=== PATIENT | male | born 1950 | race Caucasian/White ===

== ENCOUNTER → 2018-05-17 | Outpatient (CLI) | payer BC ==
--- NOTE | 2018-05-17 16:33 | CONS ---
CONSULTATION REASON FOR CONSULTATION: Consultation note for sleep apnea. 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 Apparently he quits breathing as reported by his . He snores. Never the less, he is not having major excessive fatigue or sleepiness during the day. He is able to drive his car without having to fall asleep. He is able to concentrate during the day and he is able to perform day-to-day activities without any major difficulties. He goes to bed around 11 p.m., wakes up 7:30 am in the morning and he feels rather refreshed. He has undergone a sleep study many years back. However, he was unable to fall asleep at the [facility] and as the patient has some degree of anxiety and on and off he has required Ambien for sleep induction. Sometimes he takes more than 30 minutes to fall asleep and he gets up and he cannot fall asleep and he takes an Ambien for sleep induction at dose of 5 mg. No choking or gasping sensation at nighttime. No nocturia. No grinding of the teeth. No dry mouth. He has chronic anxiety. No panic attack or heartburn. No recent weight gain or weight loss. PAST MEDICAL HISTORY: Diabetes and hyperlipidemia. PAST SURGICAL HISTORY: Knee arthroscopic surgery. DRUG ALLERGIES: Not known. OUTPATIENT MEDICATION: Include Januvia 100, lisinopril 10 mg p.o. daily, metformin 850 1 tablet twice a day. Symbicort as needed. 300/3 units daily and Ambien 5 mg as needed. SOCIAL HISTORY: The patient is a nonsmoker. No history of alcoholism. No history of IV drugs. FAMILY HISTORY: Negative for sleep apnea. REVIEW OF SYSTEMS: 12-point review of system was done. The positive findings are mentioned above in the history of present illness. No sleepwalking. No sleep talking. No sleep paralysis. No hallucinations. No cataplexy. No nocturnal chest pain. No heartburn. No swelling in lower extremities. No claustrophobia, chronic anxiety and has not been able to undergo a polysomnogram in the sleep center in the past. PHYSICAL EXAMINATION: BP is 124/67, pulse 65, respirations 16, temperature 97.6, saturation 94% on room air. Weight is 214, height 5 feet 5 inches, Long[place] score 14. Neck size 17 inches and BMI 35. GENERAL APPEARANCE: Calm, comfortable. Head is atraumatic, normocephalic. Neck is short, supple, Mallampati class 3. No goiter or neck masses. LUNGS: Clear to auscultation. HEART: Sounds are regular. Normal S1, S2. No S3. No murmurs. ABDOMEN: Soft and nontender. EXTREMITIES: No edema. No cyanosis or clubbing. IMPRESSION: 1. Obstructive sleep apnea suspected, based on history of snoring and witnessed apneas. 2. Obesity BMI of 35. 3. Sleepiness Longmont score of 14. 4. Diabetes. 5. Hypertension. 6. Chronic anxiety. PLAN: 1. Encourage weight loss. 2. Home sleep study for sleep apnea evaluation. 3. Will follow the patient. MMDOMINIQUEL / SONN: [id number] /
== END | disposition home or self-care (01) ==
LOC: SLEEP 13:43
PROVIDERS: ATTEND Internal Medicine Critical Care Medicine
DX: G47.33 Obstructive sleep apnea (adult) (pediatric) (principal); E11.9 Type 2 diabetes mellitus without complications; I10 Essential (primary) hypertension; F41.9 Anxiety disorder, unspecified; E78.5 Hyperlipidemia, unspecified; E66.9 Obesity, unspecified; Z68.35 Body mass index [BMI] 35.0-35.9, adult; Z98.890 Other specified postprocedural states; Z79.899 Other long term (current) drug therapy; Z79.84 Long term (current) use of oral hypoglycemic drugs
CPT/HCPCS: 99211

== ENCOUNTER → 2018-07-26 | Outpatient (CLI) | payer BC ==
--- NOTE | 2018-07-26 14:55 | PN ---
PROGRESS NOTE Gabriel dozier 67 was diagnosed having obstructive sleep apnea with an AHI of 27. The patient was supposed to come in for a compliancy check knowing that he was given an APAP. Note that the patient got the machine and he started using it and within 10 days into the treatment he was given a call from the DME stating that the treatment was not working out, probably related to some emergence of central events. Based on that, the patient quit taking the treatment, he has not used his CPAP since then. I had an opportunity to look at the compliance data that was gathered over the past 39 days. The patient has used his machine and only 7 days where he achieved more than 4 hours. Average usage is around 4.5 hours per night and AHI is down to 14 with the central apnea index of 10. As such, the patient probably has some emergent central apneas and he may be a complex case. [id number], these may be transient central events that may ultimately recover and resolve with time. I think the overall duration of treatment is short enough to make final judgment whether this was a failed treatment. His [place] score is 14 and patient continues to be symptomatic with obstructive sleep apnea. He does not have any coronary artery disease. Does have any stroke, does not have any atrial fibrillation or congestive heart failure. He is known to have diabetes and hypertension and chronic anxiety. Temperature 97.1, pulse 88, respirations 16, BP 141/72, saturation 95% on room air. Weight is 16. GENERAL APPEARANCE: Calm, comfortable. Head is atraumatic, normocephalic. Neck is supple. There is no JVD. No goiter or neck masses. Mallampati class 4. Lungs clear to auscultation. Heart sounds are regular rate and rhythm. Normal S1, S2. No S3. No murmurs. Abdomen is soft, nontender. EXTREMITIES: No edema. No cyanosis or clubbing. NEUROLOGIC: Alert and oriented x3. No focal neurological deficits. PSYCHIATRIC: Negative for appropriate mood and affect. Negative for any acute depression. SKIN: Negative for any wounds or ulceration. IMPRESSION: 1. Obstructive sleep apnea moderate in severity. Apnea-hypopnea index of 27. The patient was given an APAP and the patient started having central apnea emergence and he may be a case of complex ROSEY having treatment emergent central events. 2. Mild nocturnal oxygen desaturation secondary to obstructive sleep apnea. 3. Hypersomnia, [place] score of 14. 4. Obesity, body mass index of 35. 5. Diabetes. 6. Hypertension. PLAN: This patient does not have any congestive heart failure, atrial fibrillation, no history of stroke. He does not have any underlying neurologic deficits. He does not take any opiates. As such, this may be transient central events that may ultimately recovered. As such, would need a longer duration of CPAP therapy to decide whether this was a treatment failure. I asked the patient to go back on his CPAP machine for another 60 days and come in for another compliancy check. Encouraged weight loss. Implement good sleep hygiene measures. Will continue to follow. MMDOMINIQUEL / IJN: [id number] /
== END | disposition home or self-care (01) ==
LOC: SLEEP 13:55
PROVIDERS: ATTEND Internal Medicine Critical Care Medicine
DX: G47.33 Obstructive sleep apnea (adult) (pediatric) (principal); E66.9 Obesity, unspecified; E11.9 Type 2 diabetes mellitus without complications; I10 Essential (primary) hypertension; Z68.35 Body mass index [BMI] 35.0-35.9, adult

== ENCOUNTER → 2018-10-18 | Outpatient (CLI) | payer BC ==
--- NOTE | 2018-10-18 15:54 | PN ---
PROGRESS NOTE Gabriel is 67. He is coming in for further advice regarding his ROSEY treatment. The patient was diagnosed having sleep apnea predominantly obstructive with some mild central events with an AHI of 27 based on an original home sleep study. Following that, the patient was given an APAP. He never got to the point where he has using APAP on a regular basis. He uses for around a week or so initially and subsequently he quit the treatment. He did not see any benefit while being on treatment. Since his last evaluation back in July of 2018, he has not used his APAP machine. I am not sure if he is willing to undertake the treatment. I checked the machine itself and there was no new data accumulated or gathered within the machine. I noted that the patient was still having central events even while on treatment. Upon further questioning, the patient has not had any history of stroke. No history of any narcotic intake. No history of any CHF, cardiomyopathy, atrial fibrillation, or any other cardiovascular complications. He is trying to lose weight. However his weight has remained stable. In fact, he has gained only a few pounds since his last evaluation. He does not have any significant sleepiness during the day. His Griffith score remains low at 6. BP is 141/79, pulse 72, respirations 17, temperature 97.9 saturation 95% on room air. Weight is 220. Height is 5 feet 2 inches, BMI 36. Griffith score of 6. GENERAL APPEARANCE: Calm and comfortable. HEENT: Head is atraumatic, normocephalic. NECK: Neck is short, supple neck. Crowding of posterior pharynx is present. There is no goiter or neck masses. LUNGS: Diminished breath sounds. Otherwise clear. Heart sounds are regular rate and rhythm. Normal S1, S2. No S3, S4. No murmurs. ABDOMEN is soft, nontender. No organomegaly. EXTREMITIES: No edema. No cyanosis or clubbing. IMPRESSION: 1. Obstructive sleep apnea AHI of 27, treated with APAP with subsequent emergence of central apneas and subsequent failure to demonstrate adequate compliance. The patient for now is declining the treatment. 2. Hypersomnia improved Griffith score is down to 6. 3. Obesity BMI of 35. 4. Diabetes. 5. Hypertension. PLAN: 1. We will discontinue the treatment. 2. Encourage weight loss. 3. Would ask the patient to undergo a reevaluation with another in a year's time to readdress the presence of obstructive versus central sleep apnea and decide if treatment will be of any value. For now he is declining the treatment. MMODL / IJN: [id number] /
== END ==
LOC: SLEEP 14:34
PROVIDERS: ATTEND Internal Medicine Critical Care Medicine
DX: G47.33 Obstructive sleep apnea (adult) (pediatric) (principal); E66.9 Obesity, unspecified; E11.9 Type 2 diabetes mellitus without complications; I10 Essential (primary) hypertension; Z99.89 Dependence on other enabling machines and devices; Z68.35 Body mass index [BMI] 35.0-35.9, adult

== ENCOUNTER → 2019-09-08 | Outpatient (CLI) | payer MEDICARE, BC ==
--- NOTE | 2019-09-13 08:43 | P.ARTDOP ---
Arterial Doppler LOWER EXTREMITY ARTERIAL DOPPLER: DATE OF SERVICE: 09/08/2019 Reason for study: Bilateral leg pain. Doppler waveforms: Multiphasic bilaterally throughout.. Pulse volume recording: []. Pressure gradients: Mild gradient across the knee on the right and below the knee on the left. Ankle-brachial indices: 0.78 bilaterally. Toe pressures: 83 on the right, 76 on the left Impression: Mild bilateral fem-pop disease..
== END | disposition home or self-care (01) ==
LOC: RADUSWWP 15:27
PROVIDERS: ATTEND Family Medicine
DX: I73.9 Peripheral vascular disease, unspecified (principal)
CPT/HCPCS: 93923

== ENCOUNTER 2023-02-21 10:50 | Emergency (ER) | payer MEDICARE, BC ==
[2023-02-21 10:58] VITALS: RESP 18
--- NOTE | 2023-02-21 11:51 | ED ---
General Adult HPI - General Chief complaint: Shortness of Breath Stated complaint: rt leg pain Time Seen by Provider: 02/21/23 11:27 Source: patient, RN notes reviewed, old records reviewed Mode of arrival: ambulatory Limitations: no limitations - History of Present Illness Initial comments: 72-year-old male presents for evaluation of right leg pain. Patient has had symptoms for the past several years according to both the patient and his . They have been worsening. Patient states that he develops worsening symptoms with ambulation bilaterally in the right leg. He has a previous history of tobacco use but quit about 20 years ago. He denies known vascular disease. Denies chest pain. Denies fever. He does report mild dyspnea which she states is quite mild. No cough. No fever. - Related Data Home Medications Medication Instructions Recorded Confirmed Insulin Detemir [Levemir Flextouch 17 units SQ PC-SUPPER 09/30/15 06/24/16 Pen] Pioglitazone HCl/Metformin HCl 1 tab PO BID 09/30/15 06/24/16 [Actoplus Met 15 mg-850 mg Tab] Rosuvastatin Calcium [Crestor] 20 mg PO HS 09/30/15 06/24/16 Zolpidem [Ambien] 10 mg PO HS PRN 09/30/15 06/24/16 lisinopriL [Zestril] 10 mg PO DAILY 09/30/15 06/24/16 sitaGLIPtin [Januvia] 100 mg PO DAILY 06/22/16 06/24/16 Allergies Allergy/AdvReac Type Severity Reaction Status Date / Time No Known Allergies Allergy Verified 02/21/23 10:57 Review of Systems ROS Statement: Those systems with pertinent positive or pertinent negative responses have been documented in the HPI. ROS Other: All systems not noted in ROS Statement are negative. Past Medical History Past Medical History: COPD, Diabetes Mellitus, Hyperlipidemia, Hypertension Additional Past Medical History / Comment(s): SPOUSE STATES TRIED TO USE CPAP BUT WAS UNABLE TO, COULD NOT DO THE TESTING History of Any Multi-Drug Resistant Organisms: None Reported Past Surgical History: Orthopedic Surgery Additional Past Surgical History / Comment(s): RT KNEE SX. COLONOSCOPY Past Anesthesia/Blood Transfusion Reactions: No Reported Reaction Past Psychological History: Anxiety Smoking Status: Former smoker Past Alcohol Use History: None Reported Past Drug Use History: None Reported - Past Family History Sister(s) Family Medical History: Cancer Father Family Medical History: Cancer Mother Family Medical History: Cancer General Exam Limitations: no limitations General appearance: alert, in no apparent distress Head exam: Present: atraumatic, normocephalic Eye exam: Present: normal appearance, PERRL ENT exam: Present: normal exam Neck exam: Present: normal inspection. Absent: tenderness, meningismus Respiratory exam: Present: normal lung sounds bilaterally. Absent: respiratory distress, wheezes, rales, rhonchi Cardiovascular Exam: Present: regular rate, normal rhythm GI/Abdominal exam: Present: soft. Absent: distended, tenderness Extremities exam: Present: normal inspection, normal capillary refill, other (Right leg: DP and PT pulses 2+). Absent: pedal edema, calf tenderness Neurological exam: Present: alert, oriented X3, CN II-XII intact. Absent: motor sensory deficit Psychiatric exam: Present: normal affect, normal mood Course Vital Signs 02/21/23 10:51 Temperature 98.9 F Pulse Rate 98 Respiratory 18 Rate Blood Pressure 155/72 O2 Sat by Pulse 98 Oximetry EKG Findings - EKG Comments: EKG Findings:: EKG: Sinus rhythm rate of 80, NM interval 159, QRS duration 75, QTC 400, no ST segment elevation. Medical Decision Making - Medical Decision Making Was pt. sent in by a medical professional or institution ([facility], [employer]T [employer], urgent care, hospital, or snf...) When possible be specific @ -No Did you speak to anyone other than the patient for history (EMS, parent, family, police, friend...)? What history was obtained from this source @ Patient's was at bedside Did you review nursing and triage notes (agree or disagree)? Why? @ -I reviewed and agree with nursing and triage notes Were old charts reviewed (outside hosp., previous admission, EMS record, old EKG, old radiological studies, urgent care reports/EKG's, snf records)? Report findings @ -No old charts were reviewed Differential Diagnosis (chest pain, altered mental status, abdominal pain women, abdominal pain men, vaginal bleeding, weakness, fever, dyspnea, syncope, headache, dizziness, GI bleed, back pain, seizure, CVA, palpatations, mental health, musculoskeletal)? @ -not applicable EKG interpreted by me (3pts min.). @ -As above X-rays interpreted by me (1pt min.). @ Reviewed and interpreted by myself, no acute findings CT interpreted by me (1pt min.). @ -None done U/S interpreted by me (1pt. min.). @ Reviewed and interpreted by myself, no DVT What testing was considered but not performed or refused? (CT, X-rays, U/S, labs)? Why? @ -None What meds were considered but not given or refused? Why? @ -None Did you discuss the management of the patient with other professionals (professionals i.e. , PA, BELT FIXER, lab, RT, psych nurse, social work faculty member, ross carrier driver, teacher, chief clinical officer, rifle case repairer)? Give summary @ -No Was smoking cessation discussed for >3mins.? @ -No Was critical care preformed (if so, how long)? @ -No Were there social determinants of health that impacted care today? How? (Homelessness, low income, unemployed, alcoholism, drug addiction, transportation, low edu. Level, literacy, decrease access to med. care, detention, rehab)? @ -No Was there de-escalation of care discussed even if they declined (Discuss DNR or withdrawal of care, Hospice)? DNR status @ -No What co-morbidities impacted this encounter? (DM, HTN, Smoking, COPD, CAD, Canc er, CVA, ARF, Chemo, Hep., AIDS, mental health diagnosis, sleep apnea, morbid obesity)? @ COPD Was patient admitted / discharged? Hospital course, mention meds given and route, prescriptions, significant lab abnormalities, going to OR and other pertinent info. @ 72-year-old male presenting with chronic right leg pain. Patient's history does suggest claudication symptoms. He has palpable DP and PT pulses. The extremity is warm. Ultrasound is negative for DVT. There was a complaint of minor dyspnea and workup for this is unremarkable including CBC, CMP, troponin, BNP, and chest x-ray. Lungs are clear and there is no respiratory distress. Given the progression of symptoms I do recommend the patient follow up with vascular surgery for evaluation. Undiagnosed new problem with uncertain prognosis? @ -No Drug Therapy requiring intensive monitoring for toxicity (Heparin, Nitro, Insulin, Cardizem)? @ -No Were any procedures done? @ -No Diagnosis/symptom? @ Leg pain Acute, or Chronic, or Acute on Chronic? @ Chronic Uncomplicated (without systemic symptoms) or Complicated (systemic symptoms)? @ Complicated Side effects of treatment? @ -No Exacerbation, Progression, or Severe Exacerbation? @ -No Poses a threat to life or bodily function? How? (Chest pain, [place], [place], pneumonia, PE, COPD, DKA, ARF, appy, cholecystitis, CVA, Diverticulitis, Homicidal, Suicidal, threat to staff... and all critical care pts) @ -No - Lab Data Result diagrams: 02/21/23 11:48 02/21/23 11:48 Lab Results 02/21/23 02/21/23 02/21/23 Range/Units 11:48 11:48 11:48 WBC 7.5 (3.8-10.6) k/uL RBC 4.21 L (4.30-5.90) m/uL Hgb 12.5 L (13.0-17.5) gm/dL Hct 39.0 (39.0-53.0) % MCV 92.6 (80.0-100.0) fL MCH 29.8 (25.0-35.0) pg MCHC 32.2 (31.0-37.0) g/dL RDW 13.3 (11.5-15.5) % Plt Count 239 (150-450) k/uL MPV 8.8 Neutrophils % 71 % Lymphocytes % 19 % Monocytes % 6 % Eosinophils % 1 % Basophils % 1 % Neutrophils # 5.3 (1.3-7.7) k/uL Lymphocytes # 1.4 (1.0-4.8) k/uL Monocytes # 0.5 (0-1.0) k/uL Eosinophils # 0.1 (0-0.7) k/uL Basophils # 0.0 (0-0.2) k/uL PT 10.1 (9.0-12.0) sec INR 1.0 (<1.2) APTT 25.7 (22.0-30.0) sec Sodium 142 (137-145) mmol/L Potassium 4.6 (3.5-5.1) mmol/L Chloride 104 (98-107) mmol/L Carbon Dioxide 28 (22-30) mmol/L Anion Gap 10 mmol/L BUN 12 (9-20) mg/dL Creatinine 1.03 (0.66-1.25) mg/dL Est GFR (CKD-EPI)AfAm 85 (>60 ml/min/1.73 sqM) Est GFR (CKD-EPI)NonAf 74 (>60 ml/min/1.73 sqM) Glucose 123 H (74-99) mg/dL Calcium 9.7 (8.4-10.2) mg/dL Magnesium 1.9 (1.6-2.3) mg/dL Total Bilirubin 1.7 H (0.2-1.3) mg/dL AST 29 (17-59) U/L ALT 21 (4-49) U/L Alkaline Phosphatase 56 (38-126) U/L Troponin I (0.000-0.034) ng/mL NT-Pro-B Natriuret Pep pg/mL Total Protein 8.3 H (6.3-8.2) g/dL Albumin 4.7 (3.5-5.0) g/dL 02/21/23 02/21/23 Range/Units 11:48 11:48 WBC (3.8-10.6) k/uL RBC (4.30-5.90) m/uL Hgb (13.0-17.5) gm/dL Hct (39.0-53.0) % MCV (80.0-100.0) fL MCH (25.0-35.0) pg MCHC (31.0-37.0) g/dL RDW (11.5-15.5) % Plt Count (150-450) k/uL MPV Neutrophils % % Lymphocytes % % Monocytes % % Eosinophils % % Basophils % % Neutrophils # (1.3-7.7) k/uL Lymphocytes # (1.0-4.8) k/uL Monocytes # (0-1.0) k/uL Eosinophils # (0-0.7) k/uL Basophils # (0-0.2) k/uL PT (9.0-12.0) sec INR (<1.2) APTT (22.0-30.0) sec Sodium (137-145) mmol/L Potassium (3.5-5.1) mmol/L Chloride (98-107) mmol/L Carbon Dioxide (22-30) mmol/L Anion Gap mmol/L BUN (9-20) mg/dL Creatinine (0.66-1.25) mg/dL Est GFR (CKD-EPI)AfAm (>60 ml/min/1.73 sqM) Est GFR (CKD-EPI)NonAf (>60 ml/min/1.73 sqM) Glucose (74-99) mg/dL Calcium (8.4-10.2) mg/dL Magnesium (1.6-2.3) mg/dL Total Bilirubin (0.2-1.3) mg/dL AST (17-59) U/L ALT (4-49) U/L Alkaline Phosphatase (38-126) U/L Troponin I <0.012 (0.000-0.034) ng/mL NT-Pro-B Natriuret Pep 182 pg/mL Total Protein (6.3-8.2) g/dL Albumin (3.5-5.0) g/dL Disposition Clinical Impression: Leg pain Disposition: HOME SELF-CARE Condition: Good Instructions (If sedation given, give patient instructions): Leg Pain (ED) Is patient prescribed a controlled substance at d/c from ED?: No Referrals: Med Shetty MD [Primary Care Provider] - 1-2 days Ag Carty DO [Doctor of Osteopathic Medicine] - 1-2 days Time of Disposition: 14:48
[2023-02-21 12:13] LABS: Albumin 4.7 g/dL (3.5-5.0); Calcium 9.7 mg/dL (8.4-10.2); Magnesium 1.9 mg/dL (1.6-2.3); Potassium 4.6 mmol/L (3.5-5.1); Total Bilirubin 1.7 mg/dL (0.2-1.3); Total Protein 8.3 g/dL (6.3-8.2)
[2023-02-21 12:57] LABS: Basophils % (A) 1 %; Eosinophils # (A) 0.1 k/uL (0-0.7); Eosinophils % (A) 1 %; HGB 12.5 gm/dL (13.0-17.5); Lymphocytes # (A) 1.4 k/uL (1.0-4.8); Lymphocytes % (A) 19 %; MCH 29.8 pg (25.0-35.0); MCHC 32.2 g/dL (31.0-37.0); MCV 92.6 fL (80.0-100.0); Mean Platelet Volume 8.8; Monocytes # (A) 0.5 k/uL (0-1.0); Monocytes % (A) 6 %; Neutrophils # (A) 5.3 k/uL (1.3-7.7); Neutrophils % (A) 71 %; Platelet Count 239 k/uL (150-450); RBC 4.21 m/uL (4.30-5.90); RDW 13.3 % (11.5-15.5); WBC 7.5 k/uL (3.8-10.6)
[2023-02-21 13:08] LABS: Partial Thromboplastin Time 25.7 sec (22.0-30.0); Prothrombin Time 10.1 sec (9.0-12.0)
--- NOTE | 2023-02-21 13:18 | XR ---
EXAMINATION TYPE: XR chest 2V DATE OF EXAM: 02/21/2023 COMPARISON: None INDICATION: Right leg swelling TECHNIQUE: Frontal and lateral views of the chest are obtained. FINDINGS: The heart size is normal. The pulmonary vasculature is normal. The lungs are clear. IMPRESSION: 1. No acute pulmonary process.
--- NOTE | 2023-02-21 14:39 | US ---
EXAMINATION TYPE: US venous doppler duplex LE RT DATE OF EXAM: 02/21/2023 11:46 AM COMPARISON: NONE CLINICAL INDICATION: Male, 72 years old with history of pain/swelling; SIDE PERFORMED: Right TECHNIQUE: The lower extremity deep venous system is examined utilizing real time linear array sonog britney with graded compression, doppler sonography and color-flow sonography. VESSELS IMAGED: Common Femoral Vein Deep Femoral Vein Greater Saphenous Vein * Femoral Vein Popliteal Vein Small Saphenous Vein * Proximal Calf Veins (* superficial vessels) Right Leg: Negative for DVT IMPRESSION: 1. Right lower extremity ultrasound negative for deep venous thrombosis.
[2023-02-21 15:19] VITALS: BP 140/82; PULSE 80; TEMP 97.9
== END 2023-02-21 15:19 | disposition home or self-care (01) ==
LOC: EC 10:50
DX: M79.604 Pain in right leg (principal); R06.02 Shortness of breath; J44.9 Chronic obstructive pulmonary disease, unspecified; E11.9 Type 2 diabetes mellitus without complications; I10 Essential (primary) hypertension; E78.5 Hyperlipidemia, unspecified; Z79.4 Long term (current) use of insulin; Z79.899 Other long term (current) drug therapy; Z79.84 Long term (current) use of oral hypoglycemic drugs; Z79.891 Long term (current) use of opiate analgesic
CPT/HCPCS: 36415; 71046; 80053; 83735; 83880; 84484; 85025; 85610; 85730; 93005; 99285

== ENCOUNTER 2023-06-29 10:09 | Day surgery (SDC) | payer MEDICARE, BC ==
[~2023-06-29 10:09] MED LIST: ALPRAZolam 0.25 MG TAB PO PRN; ALPRAZolam 0.5 MG TAB PO PRN; ASPIRIN 325 MG TAB PO STA; ATORVASTATIN 80 MG TAB PO STA; HEPARIN SODIUM,PORCINE (1 ML) 2,500 UNIT in SODIUM CHLORIDE 0.9% 250 ML IRRIGATION PRN; HEPARIN SODIUM,PORCINE 10,000 UNIT in SODIUM CHLORIDE 0.9% 1,000 ML IRRIGATION PRN; NITROGLYCERIN SL TABS 0.4 MG TAB SUBLINGUAL PRN
[2023-06-29 10:57] LABS: Glucose,Whole Blood 141 mg/dL (70-110)
[2023-06-29] MEDS ORDERED: SODIUM CHLORIDE 0.9% 1,000 ML IV ONE (10:57)
[2023-06-29] MEDS ORDERED: lisinopriL 10 MG TAB PO STA (11:04)
[2023-06-29 11:14] LABS: Basophils % (A) 0 %; Eosinophils # (A) 0.1 k/uL (0-0.7); Eosinophils % (A) 1 %; HCT 38.8 % (39.0-53.0); HGB 12.4 gm/dL (13.0-17.5); Lymphocytes # (A) 1.6 k/uL (1.0-4.8); Lymphocytes % (A) 18 %; MCH 30.6 pg (25.0-35.0); MCV 95.7 fL (80.0-100.0); Monocytes # (A) 0.5 k/uL (0-1.0); Monocytes % (A) 6 %; Neutrophils # (A) 6.3 k/uL (1.3-7.7); Neutrophils % (A) 73 %; Platelet Count 238 k/uL (150-450); RBC 4.06 m/uL (4.30-5.90); RDW 14.7 % (11.5-15.5); WBC 8.5 k/uL (3.8-10.6)
[2023-06-29] MEDS ORDERED: VERAPAMIL 2.5 MG/ML 2 ML AMP ONE (11:59)
[2023-06-29 12:08] LABS: African American GFR (CKD) >90 (>60 ml/min/1.73 sqM); Anion Gap 6 mmol/L; Blood Urea Nitrogen 15 mg/dL (9-20); Calcium 9.3 mg/dL (8.4-10.2); Carbon Dioxide 24 mmol/L (22-30); Chloride 108 mmol/L (98-107); Glucose 143 mg/dL (74-99); Non-African American GFR(CKD) 84 (>60 ml/min/1.73 sqM); Potassium 4.6 mmol/L (3.5-5.1); Sodium 138 mmol/L (137-145)
[2023-06-29] MEDS ORDERED: HEPARIN SODIUM 1,000 UN/ML (10ML VL) ONE (12:30)
[2023-06-29] MEDS ORDERED: MIDAZOLAM 2 MG/2 ML VIAL IVP ONE (12:39)
[2023-06-29] MEDS ORDERED: LIDOCAINE 2% (PF) 20 MG/ML 5 ML VIAL SQ ONE (12:40)
[2023-06-29] MEDS ORDERED: VERAPAMIL SYRINGE (5 MG/10 ML) INTRAARTER ONE (12:41)
[2023-06-29] MEDS ORDERED: fentaNYL (PF) 50 MCG/ML 2 ML AMP ONE (12:59)
[2023-06-29] MEDS ORDERED: fentaNYL (PF) 50 MCG/ML 2 ML AMP IVP ONE (13:02)
[2023-06-29] MEDS ORDERED: LIDOCAINE 1% INJ 10MG/ML (20 ML MDV) ONE (13:06)
[2023-06-29] MEDS ORDERED: RX INFO: IV CONTRAST WAS GIVEN 1 EACH MISC MISCELLANE PRN (13:22)
--- NOTE | 2023-06-29 13:26 | P.PCN ---
Date of Procedure: 06/29/23 Operative Findings: CARDIAC CATHETERIZATION PERFORMING PHYSICIAN: Jeferson Villavicencio MD, RPVI PROCEDURE PERFORMED: 1. Selective right and left coronary angiogram 2. Left heart catheterization 3. Selective right common femoral artery and right radial angiogram 4. Ultrasound-guided access of the right radial artery INDICATION: Chest discomfort and abnormal myocardial perfusion imaging stress test COMPLICATION: None APPROACH: Right common femoral artery LEVEL OF SEDATION: Moderate with sedation in length of 28 minutes PROCEDURE DESCRIPTION: After obtaining an informed consent, the patient was brought to cardiac biology laboratory assistant. Local anesthesia was performed using lidocaine subcutaneously. Attending accessing the right radial artery was successful using ultrasound and then I placed a 6-Danish sheath at the right radial artery. Unfortunately we could not advance the catheter beyond the elbow in spite of using 014 wire and all 35 wire. Also I attempted using balloon-assisted striking and in spite of that I could not advance the catheter and for that reason I decided to go from the groin. The right common femoral artery was cannulated using Seldinger technique, the guidewire passed easily, following that we advanced a 6 Danish sheath dilator assembly, the wire and dilator were removed and sheath was flushed. Selective right and left coronary angiogram using a 6-Danish JR4 and JL catheters. Following that we did left heart catheterization using 6-Danish pigtail catheter. The procedure was completed there was no complication. SELECTIVE CORONARY ANGIOGRAM: The right coronary artery: Large-caliber vessel and a dominant vessel. The RCA has mild disease in the proximal portion Left main: Is angiographically normal. Bifurcates into an ulcer excellent LAD The left circumflex: Large caliber vessel and nondominant vessel. The LCx is angiographically normal and gives rises into an OM1 and OM 2 and both appeared to be angiographically normal The left anterior descending artery: The LAD is a large caliber vessel was mild disease in the ostium as well as a midportion. HEMODYNAMICS: The LVDP was about 16 mmHg was no significant gradient across aortic valve CONCLUSION: 1. 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 Normal left-sided filling pressure POSTPROCEDURE MANAGEMENT: Medical treatment
[2023-06-29] MEDS ORDERED: IOPAMIDOL-370 100ML BTL INJ ONE (13:30)
[2023-06-29] MEDS ORDERED: SODIUM CHLORIDE 0.9% 1,000 ML IV SCH (13:30)
[2023-06-29] MEDS ORDERED: hydrALAZINE HCL 20 MG/ML 1 ML VIAL IVP ONE (13:35)
[2023-06-29] MEDS: SODIUM CHLORIDE 0.9% 1,000 ML in EMPTY BAG 1 BAG IV SCH (16:48)
[2023-06-29 17:11] LABS: Glucose,Whole Blood 120 mg/dL (70-110)
[2023-06-29 21:08] VITALS: BP 164/81; PULSE 78; RESP 16; TEMP 98
== END 2023-06-29 22:00 | disposition home or self-care (01) ==
LOC: CATHCVL 10:09 → 6NMEDSUR 13:18 → CATHCVL 22:00
PROVIDERS: ATTEND Internal Medicine Interventional Cardiology
DX: I25.10 Atherosclerotic heart disease of native coronary artery without angina pectoris (principal); I35.0 Nonrheumatic aortic (valve) stenosis; I10 Essential (primary) hypertension; E78.5 Hyperlipidemia, unspecified; E11.9 Type 2 diabetes mellitus without complications; F17.210 Nicotine dependence, cigarettes, uncomplicated; Z79.899 Other long term (current) drug therapy
CPT/HCPCS: 93458; 80048; 85025; C1769 ×3; C1894 ×2; C1725; J2250; J0360; J3010; Q9967; J2001

== ENCOUNTER → 2024-07-10 | Outpatient (CLI) | payer MEDICARE, BC ==
[2024-07-10 13:03] LABS: African American GFR (CKD) 78 (>60 ml/min/1.73 sqM); Blood Urea Nitrogen 20 mg/dL (9-20); Non-African American GFR(CKD) 67 (>60 ml/min/1.73 sqM)
--- NOTE | 2024-07-10 14:24 | CT ---
EXAMINATION TYPE: CT angio neck DATE OF EXAM: 07/10/2024 HISTORY: r/o stenosis, pt states he has no symptoms COMPARISON: None CT DLP: 406.3 mGycm. Automated Exposure Control for Dose Reduction was Utilized. TECHNIQUE: CTA scan of the neck is performed with IV Contrast, patient injected with 65 mL of Isovue 370, axial images are obtained, coronal and sagittal reformatted images are reviewed. 3D reconstruct ed images are created on an independent workstation and reviewed. FINDINGS: The brachiocephalic origins are widely patent and no significant stenosis. There are moderate calcified plaques in the carotid bifurcations. Plaque results in a severe approximately 70% stenosis of the right internal carotid artery. There is no significant stenosis of the left internal carotid. . IMPRESSION:. No significant abnormality seen. NASCET criteria was used in interpretation of this exam? [facility], Workstation: [id number] 07/10/2024 2:21 PM
== END | disposition home or self-care (01) ==
LOC: RADCTMAIN 12:29
PROVIDERS: ATTEND Internal Medicine Interventional Cardiology
DX: I65.23 Occlusion and stenosis of bilateral carotid arteries (principal)
CPT/HCPCS: 36415; 70498; 82565; 84520